=== PATIENT | female | born 1960 | race Two or more races ===

== ENCOUNTER 2021-04-27 08:13 | Inpatient (IN) | payer OTHER ==
[~2021-04-27] VITALS: Ht 152.4 cm; Wt 77.1 kg
[2021-04-27 09:51] LABS: BASOPHILS % 0.7 % (0.0-2.0); EOSINOPHILS % 2.7 % (0.0-5.0); HEMATOCRIT. 39.9 % (36.0-48.0); HEMOGLOBIN. 13.9 g/dL (12.0-16.0); LYMPHOCYTES % 34.3 % (20.0-50.0); MEAN CORPUSCULAR HEMOGLOBIN 31.6 pg (28.0-32.0); MEAN CORPUSCULAR VOLUME 90.9 fL (81.0-99.0); MEAN PLATELET VOLUME 8.1 fl (7.4-10.4); MONOCYTES % 9.4 % (2.0-8.0); NEUTROPHILS % 52.9 % (40.0-76.0); PLATELET 211 x1000/uL (130-400); RED BLOOD CELL COUNT 4.39 mill/uL (4.2-5.4)
[2021-04-27 09:55] LABS: CHLORIDE 111 mEq/L (98-107)
[2021-04-27] MEDS ORDERED: ASPIRIN 81MG TABLET PO NR (10:30)
[2021-04-27] MEDS ORDERED: ONDANSETRON HCL 4MG/2ML INJ IV PRN (13:30)
[2021-04-27 14:15] LABS: CLARITY URINE CLEAR (CLEAR); COLOR URINE YELLOW (YELLOW); KETONES URINE NEGATIVE (NEGATIVE); LEUKOCYTE ESTERASE URINE NEGATIVE (NEGATIVE); NITRITE URINE NEGATIVE (NEGATIVE); OCCULT BLOOD URINE NEGATIVE (NEGATIVE); PH URINE 6.5 (4.5-8.0); PROTEIN URINE NEGATIVE (NEGATIVE); SPECIFIC GRAVITY URINE 1.009 (1.005-1.030); UROBILINOGEN URINE 0.2 E.U./dL (0.2-1.0)
[2021-04-27] MEDS ORDERED: LEVO75TA7 PO (14:47)
[2021-04-27 15:23] LABS: CREATINE KINASE MB FRACTION 1.5 ng/mL (0.5-3.6)
[2021-04-27] MEDS: ENOXAPARIN 40MG/0.4ML SYR SUBCUT SCH (15:52)
[2021-04-27] MEDS: METHYLPREDNISOLONE SOD SUCC 40 MG/ML VIAL IV SCH (22:00)
[2021-04-27 23:44] LABS: CREATINE KINASE 80 IU/L (26-192)
[2021-04-27 23:45] LABS: CREATINE KINASE MB FRACTION < 1.0 ng/mL (0.5-3.6)
[2021-04-28] VITALS (7 sets, daily range): BP systolic 107–133; BP diastolic 53–82
[2021-04-28] MEDS ORDERED: AZIT250T12 PO (01:19)
[2021-04-28] MEDS ORDERED: ATROV IH (01:19)
[2021-04-28] MEDS ORDERED: MED4 PO (01:19)
[2021-04-28] MEDS: METHYLPREDNISOLONE SOD SUCC 40 MG/ML VIAL IV SCH ×3 (05:28→21:57)
[2021-04-28 08:04] LABS: BASOPHILS % 0.8 % (0.0-2.0); EOSINOPHILS % 0.2 % (0.0-5.0); HEMATOCRIT. 40.7 % (36.0-48.0); HEMOGLOBIN. 14.3 g/dL (12.0-16.0); LYMPHOCYTES % 21.2 % (20.0-50.0); MEAN CORPUSCULAR HEMOGLOBIN 31.5 pg (28.0-32.0); MEAN CORPUSCULAR VOLUME 89.6 fL (81.0-99.0); MEAN PLATELET VOLUME 8.3 fl (7.4-10.4); MONOCYTES % 1.7 % (2.0-8.0); NEUTROPHILS % 76.1 % (40.0-76.0); PLATELET 212 x1000/uL (130-400); RED BLOOD CELL COUNT 4.54 mill/uL (4.2-5.4)
[2021-04-28 08:11] LABS: CHLORIDE 111 mEq/L (98-107)
[2021-04-28 08:27] LABS: LDL CHOLESTEROL 100 mg/dL (5-100)
[2021-04-28 08:29] LABS: HDL CHOLESTEROL 33 mg/dL (40-59)
[2021-04-28 08:57] LABS: T4 FREE 1.24 ng/dL (0.76-1.46)
[2021-04-28] MEDS: ALBUTEROL (0.083%) 2.5MG/3ML NEB HHN SCH ×3 (09:11→19:53)
[2021-04-28] MEDS: ACETAMINOPHEN 325MG TABLET PO PRN (09:32)
[2021-04-28] MEDS: ASPIRIN 81MG TABLET PO SCH (09:32)
[2021-04-28] MEDS: ENOXAPARIN 40MG/0.4ML SYR SUBCUT SCH (15:09)
[2021-04-28 18:32] LABS: CREATINE KINASE MB FRACTION 1.2 ng/mL (0.5-3.6)
[2021-04-29] VITALS: BP 112/72
[2021-04-29 00:16] LABS: CREATINE KINASE MB FRACTION 1.6 ng/mL (0.5-3.6)
[2021-04-29] MEDS: ALBUTEROL (0.083%) 2.5MG/3ML NEB HHN SCH ×4 (02:00→20:23)
[2021-04-29 04:00] VITALS: BP 117/66
[2021-04-29] MEDS: METHYLPREDNISOLONE SOD SUCC 40 MG/ML VIAL IV SCH ×3 (05:11→21:33)
[2021-04-29] MEDS: ACETAMINOPHEN 325MG TABLET PO PRN ×2 (05:37→16:27)
[2021-04-29 06:51] LABS: CREATINE KINASE MB FRACTION 1.7 ng/mL (0.5-3.6)
[2021-04-29 08:00] VITALS: BP 94/57
[2021-04-29] MEDS ORDERED: REGADENOSON 0.4 MG/5 ML IV ONE ×2 (08:30→12:33)
[2021-04-29] MEDS: ASPIRIN 81MG TABLET PO SCH (09:56)
[2021-04-29 12:00] VITALS: BP 113/68
[2021-04-29] MEDS: ENOXAPARIN 40MG/0.4ML SYR SUBCUT SCH (14:00)
[2021-04-29 16:00] VITALS: BP 118/58
[2021-04-29 20:00] VITALS: BP 110/70
[2021-04-30] VITALS: BP 116/64
[2021-04-30] MEDS: ALBUTEROL (0.083%) 2.5MG/3ML NEB HHN SCH ×3 (02:18→14:15)
[2021-04-30 04:00] VITALS: BP 100/55
[2021-04-30 06:33] LABS: CHLORIDE 108 mEq/L (98-107)
[2021-04-30 06:38] LABS: HEMATOCRIT. 37.2 % (36.0-48.0); HEMOGLOBIN. 13.1 g/dL (12.0-16.0); LYMPHOCYTES % 8.1 % (20.0-50.0); MEAN CORPUSCULAR HEMOGLOBIN 32.1 pg (28.0-32.0); MEAN CORPUSCULAR VOLUME 90.8 fL (81.0-99.0); MEAN PLATELET VOLUME 8.4 fl (7.4-10.4); NEUTROPHILS % 87.9 % (40.0-76.0); PLATELET 221 x1000/uL (130-400); RED BLOOD CELL COUNT 4.09 mill/uL (4.2-5.4); RED CELL DISTRIBUTION WIDTH 13.1 % (11.6-14.6)
[2021-04-30 08:00] VITALS: BP 116/68
[2021-04-30] MEDS: METHYLPREDNISOLONE SOD SUCC 40 MG/ML VIAL IV SCH (08:13)
[2021-04-30] MEDS: ASPIRIN 81MG TABLET PO SCH (08:13)
[2021-04-30] MEDS ORDERED: ALBU6.7H9 INH (10:03)
[2021-04-30] MEDS ORDERED: P50 MT (10:03)
[2021-04-30 12:00] VITALS: BP 107/67
[2021-04-30] MEDS: ENOXAPARIN 40MG/0.4ML SYR SUBCUT SCH (14:00)
[2021-04-30 16:00] VITALS: BP 125/65
== END 2021-04-30 17:05 | disposition home or self-care (01) | DRG 392 ==
LOC: EDBD 08:13 → ER 08:53 → MICUSO 13:02 → 5WST 04-28
PROVIDERS: ADMIT Family Medicine; ATTEND Family Medicine
DX: K21.9 Gastro-esophageal reflux disease without esophagitis (principal); C79.51 Secondary malignant neoplasm of bone; J45.901 Unspecified asthma with (acute) exacerbation; I31.3 Pericardial effusion (noninflammatory); J90 Pleural effusion, not elsewhere classified; E03.9 Hypothyroidism, unspecified; I11.9 Hypertensive heart disease without heart failure; Z20.822 Contact with and (suspected) exposure to COVID-19; R77.8 Other specified abnormalities of plasma proteins; Z80.3 Family history of malignant neoplasm of breast; Z85.3 Personal history of malignant neoplasm of breast; Z90.13 Acquired absence of bilateral breasts and nipples; Z88.1 Allergy status to other antibiotic agents
CPT/HCPCS: 36415; 70490; 71045; 78452; 80048; 80053; 80061; 81003; 82550; 82553; 83036; 83880; 84439; 84443; 84484; 85025; 85379; 87426; 93005; 93017; 93306; 93970; 99285; A9500; J1650; J2785; J2920